=== PATIENT | male | born 1970 | race African-American/Black ===

== ENCOUNTER 2024-07-13 10:30 | Inpatient (IN) | payer OTHER ==
[2024-07-13 11:05] VITALS: BMI 28.0
[2024-07-13] MEDS ORDERED: LOPERAMIDE HCL 2 MG CAPSULE PO PRN (11:33)
[2024-07-13] MEDS ORDERED: IBUPROFEN 400 MG TABLET (FP) PO PRN (11:33)
[2024-07-13] MEDS ORDERED: IBUPROFEN 600 MG TABLET (FP) PO PRN (11:33)
[2024-07-13] MEDS ORDERED: BENZOCAINE/MENTHOL (CHLORASEPTIC ) LOZENGE MM PRN (11:33)
[2024-07-13] MEDS ORDERED: POLYETHYLENE GLYCOL (HEALTHYLAX) 3350 17 GM PACKET PO PRN (11:33)
[2024-07-13] MEDS ORDERED: guaiFENesin 600 MG TABLET.ER (FP) PO PRN (11:33)
[2024-07-13] MEDS ORDERED: MAGNESIUM HYDROX 2400MG/30ML ORAL SUSPENSION 30 ML CUP PO PRN (11:33)
[2024-07-13] MEDS ORDERED: NALOXONE HCL 0.4 MG/ML VIAL IM PRN (11:33)
[2024-07-13] MEDS ORDERED: ACETAMINOPHEN 325 MG TABLET (FP) PO PRN (11:33)
[2024-07-13] MEDS ORDERED: BENZONATATE 200 MG CAPSULE PO PRN (11:33)
[2024-07-13] MEDS ORDERED: MAG HYDROX/AL HYDROX/SIMETH 30 ML UNIT-DOSE CUP PO PRN (11:33)
[2024-07-13] MEDS ORDERED: NALOXONE (NARCAN) HCL 4 MG/0.1 ML SPRAY NS PRN (11:33)
[2024-07-13] MEDS ORDERED: PRENATAL VITAMINS W/ FOLIC ACID TABLET (FP) PO ONE (12:51)
[2024-07-13] MEDS: PRENATAL VITAMINS W/ FOLIC ACID TABLET (FP) PO SCH (12:52)
[2024-07-13 14:05] LABS: CHLORIDE 107 mmol/L (98-107); POTASSIUM 4.1 mmol/L (3.5-5.1); SODIUM 141 mmol/L (136-145)
[2024-07-13 14:07] LABS: CALCIUM 9.1 mg/dL (8.5-10.1)
[2024-07-13 14:08] LABS: ALBUMIN 3.7 g/dl (3.4-5.0); ANION GAP 8 mmol/L (4-13); BLOOD UREA NITROGEN 15.7 mg/dL (7-18); CO2 26 mmol/L (21-32); GLUCOSE,RANDOM 111 mg/dL (74-106)
[2024-07-13 14:10] LABS: SGPT/ALT 31 U/L (13-61)
[2024-07-13 14:11] LABS: CREATININE 1.2 mg/dL (0.55-1.3); SGOT/AST 41 U/L (15-37)
[2024-07-13 14:12] LABS: BILIRUBIN,TOTAL 0.2 mg/dL (0.2-1); TOT PROT 7.8 g/dl (6.4-8.2)
[2024-07-13 14:14] LABS: ALK PHOS 68 U/L (45-117)
[2024-07-13] MEDS: TUBERCULIN PPD 5 TU/0.1ML VIAL ID ONE (14:53)
[2024-07-13 15:52] LABS: HEMATOCRIT 43.1 % (35.4-49); HEMOGLOBIN 14.5 GM/dL (11.7-16.9); MCH 28.2 pg (25.7-33.7); MCHC 33.7 g/dl (32.0-35.9); MEAN CELL VOLUME 83.7 fl (80-96); MEAN PLT VOLUME 8.3 fl (7.5-11.1); PLATELET COUNT 261 10^3/uL (134-434); RBC 5.16 M/mm3 (4.00-5.60); RDW 14.7 % (11.9-15.9); WHITE BLOOD COUNT 8.2 K/mm3 (4.0-10.0)
[2024-07-13 16:19] LABS: SYPHILIS W/ RPR CONF REACTIVE (NONREACTIVE)
[2024-07-13] MEDS: THIAMINE 100 MG TABLET PO SCH (22:32)
[2024-07-13] MEDS: MELATONIN 5 MG TABLETS PO SCH (22:32)
[2024-07-14 11:52] LABS: EPI CELLS 14 /uL (0-25.1); HYALINE CASTS 1 /uL (0-3.1); PH,URINE 5.5 (5.0-8.0); URINE APPEARANCE CLEAR; URINE BACTERIA 75 /uL (0-1359); URINE BILIRUBIN NEGATIVE (NEGATIVE); URINE COLOR YELLOW; URINE GLUCOSE (UA) NEGATIVE (NEGATIVE); URINE KETONE NEGATIVE (NEGATIVE); URINE LEUK ESTERASE TRACE (NEGATIVE); URINE NITRITE NEGATIVE (NEGATIVE); URINE PROTEIN NEGATIVE (NEGATIVE); URINE RBC 4 /uL (0-23.9); URINE UROBILINOGEN 0.2 mg/dL (0.2-1.0); URINE WBC 54 /uL (0-25.8)
[2024-07-15] MEDS ORDERED: PRENATAL VITAMINS W/ FOLIC ACID TABLET (FP) PO PRN (12:55)
[2024-07-17] MEDS: hydrOXYzine PAMOATE 25 MG CAPSULE (FP) PO PRN (21:03)
[2024-07-26 07:01] VITALS: RESP 17
[2024-07-27 07:26] VITALS: BP 115/79; PULSE 71; TEMP 97.5
== END 2024-07-27 09:38 | disposition home or self-care (01) | DRG 772 ==
LOC: YASAS 10:30 → Y3NR 13:11 → Y3E 07-14 11:28
PROVIDERS: ADMIT Allergy & Immunology; ATTEND Psychiatry & Neurology Pain Medicine
PROC: HZ42ZZZ Group Counseling for Substance Abuse Treatment, Cognitive-Behavioral (ICD-10-PCS; principal; 2024-07-13)
DX: F14.20 Cocaine dependence, uncomplicated (principal); F17.290 Nicotine dependence, other tobacco product, uncomplicated; Z59.01 Sheltered homelessness
CPT/HCPCS: 36415; 80053; 80305; 80307; 81003; 85027; 86593; 86780; 86803; 87811; 93005; 93010